=== PATIENT | female | born 1970 | race Caucasian/White ===

== ENCOUNTER 2024-04-26 08:09 | Day surgery (SDC) | payer OTHER, SELFPAY ==
--- NOTE | 2024-04-24 16:52 | PCM.HP.BLA ---
History and Physical Date of Admission: 04/26/24 HPI: The patient is a 53 year old female presenting for pre-operative visit. She is scheduled for Hysteroscopy D&C with possible polyp resection , for PMB on 04/26/24. Procedure discussed along with risks, benefits and complications. Other alternatives discussed for management. Consent form signed? Yes. PAST MEDICAL HISTORY PAST MEDICAL HISTORY Diagnosis Date ? Allergic rhinitis due to allergen ? Arthritis ? Cyst of ovary ? Dense breast ? Dizziness ? Gastroesophageal reflux disease without esophagitis ? History of kidney stones ? History of uterine leiomyoma ? IBS (irritable bowel syndrome) ? Microcalcification of breast ? Migraine PAST SURGICAL HISTORY PAST SURGICAL HISTORY Procedure Laterality Date ? ARTHRODESIS GREAT TOE INTERPHALANGEAL JOINT Right released tendon calf ? ARTHRODESIS GREAT TOE INTERPHALANGEAL JOINT Left ? COLONOSCOPY 07/23/2018 hyperplastic polyp, tubular adenoma ? COLONOSCOPY SCREENING 02/22/2023 Small Lipoma ? EGD 10/07/2020 ? ELBOW SURGERY HX ? LITHOTRIPSY / 1 SIDE 10/2016 ? PAST SURGICAL HISTORY OF skin biopsy 02/20/23 upper right lip and right calf ? SUPERFICIAL KERATECTOMY OD (RIGHT EYE) Right 10/15/2020 ? SUPERFICIAL KERATECTOMY OS (LEFT EYE) Left 11/04/2020 Dr. Paiz CURRENT MEDICATIONS Current Outpatient Medications Medication Sig Dispense Refill ? pantoprazole DR (PROTONIX) 20 mg tablet Take 1 tablet by mouth two times a day. On empty stomach at least 30 minutes before eating. 180 tablet 3 ? indomethacin (INDOCIN) 25 mg capsule Take 1 capsule by mouth three times a day with meals. 90 capsule 3 ? SUMAtriptan (IMITREX) 100 mg tablet Take 1 tablet (100 mg) by mouth as needed for migraine headache (see administration instructions). May repeat dose after 2 hours if needed. Maximum daily dose is 200 mg per day. 27 tablet 3 ? promethazine (PHENERGAN) 25 mg tablet Take 1 tablet by mouth every 6 hours as needed. 30 tablet 1 ? famotidine (PEPCID) 20 mg tablet Take 1 tablet by mouth at bedtime as needed (reflux/heartburn). 90 tablet 1 ? econazole nitrate (ECONAZOLE TOPICAL) Apply to affected area. ? meloxicam (MOBIC) 15 mg tablet Take 1 tablet by mouth once daily. 90 tablet 2 ? FIBER, PSYLLIUM HUSK, ORAL Take 1 capsule by mouth once daily. ? nystatin (MYCOSTATIN) powder Apply 1 application to affected area four times daily. Dispense 60 gram bottles. 60 g 4 ? cholecalciferol (VITAMIN D3) 1,000 unit tab tablet Take 2 tablets by mouth once daily. ? acyclovir (ZOVIRAX) 400 mg tablet Take 400 mg by mouth. ? betamethasone dipropionate (DIPROSONE) 0.05 % cream ? hypromellose (GENTEAL TEARS SEVERE GEL OPHTHALMIC) ? pimecrolimus (ELIDEL) 1 % cream ? PEG 400-propylene glycol (SYSTANE) 0.4-0.3 % ophthalmic solution ? sodium chloride (NITA 128) 5 % ophthalmic ointment Use 1 application in both eyes daily at bedtime. 3.5 g 1 ? Cyanocobalamin 1,000 mcg subl Dissolve under the tongue. ? multivitamins w-minerals/lut(CENTRUM SILVER TAB) Take one(1) tablet daily. 0 ? predniSONE (DELTASONE) 10 mg tablet 6 tabs po day 1, then 5 tabs day 2, 4 tabs day 3, 3 tabs day 4, 2 tabs day 5, 1 tab day 6. (Patient not taking: Reported on 04/24/2024) 21 tablet 0 No current facility-administered medications for this visit. ALLERGIES: Patient has no known allergies. PERSONAL HISTORY: SOCIAL HISTORY Social History Tobacco Use ? Smoking status: Never Passive exposure: Never ? Smokeless tobacco: Never Vaping Use ? Vaping status: Never Used Substance Use Topics ? Alcohol use: Not Currently ? Drug use: Never FAMILY HISTORY: FAMILY HISTORY FAMILY HISTORY Problem Relation Age of Onset ? Prostate Cancer Father ? Glaucoma Father ? Colon Polyps Father 85 did a resecton ? Colon Cancer Maternal Grandmother Age 83 ? Lymphoma Maternal Grandmother ? Macular Degen Maternal Grandfather ? Breast Cancer Maternal Aunt REVIEW OF SYMPTOMS: GENERAL: denies fevers or chills ENDOCRINOLOGY: has not been on steroids Cardiology : denies palpitations or chest pain Respiratory: denies SOB or cough Hematology: denies history of prolonged bleeding or easy bruising or VTE Allergy: Denies history of personal or family history of allergy to anesthesia PHYSICAL EXAMINATION: VITALS: Blood pressure 126/78, pulse 95, resp. rate 16, height 166.4 cm (5' 5.5), weight 95.3 kg (210 lb), last menstrual period 10/11/2021, SpO2 98%. GENERAL: The patient is well nourished, well hydrated in no acute distress. , The patient is oriented to time, place, and person. NECK: Supple. No lynphadenopathy, normal thyroid, no thyromegaly. LUNGS: Clear to auscultation bilaterally. no wheezes, rhonchi or rales HEART: Regular rate and rhythm, Normal heart sounds, and No murmurs or gallops IMPRESSION: PMB PLAN: The risks/benefits/alternatives and personal involved for the planned hysteroscopy D&C with possible polyp resection were reviewed with the patient. Her questions were answered to her satisfaction and she desires to proceed. Consent was signed. I reviewed with her postop instructions and expectations. I have reviewed and updated past medical and surgical history, medications and allergies Assessment & Plan Assessment/Plan (1) PMB (postmenopausal bleeding):
[2024-04-26] VITALS (8 sets, daily range): BP systolic 118–153; BP diastolic 66–90; PULSE 71–89; RESP 16; TEMP 36.3–36.6; O2SAT 100; BMI 34.7
[2024-04-26 09:05] LABS: Hematocrit 38.3 % (37-47); Hemoglobin 11.9 g/dL (12.0-15.0); Mean Corp Hgb Conc 31.1 g/dL (32-36); Mean Corpuscular Hgb 20.5 pg (27.0-32.0); Mean Corpuscular Volume 65.9 fL (81-99); Mean Platelet Vol. 10.2 fl (6.2-12.0); Platelet Count 255 K/mm3 (150-450); RBC Distribution Width CV 17.7 % (11.6-14.6); RBC Distribution Width SD 38.9 fl (35.1-43.9); Red Blood Count 5.81 M/mm3 (4.2-5.4); White Blood Count 3.9 K/mm3 (4.4-11.0)
[2024-04-26] MEDS: Ketorolac 30 MG/ML Syringe IV (09:05)
[2024-04-26] MEDS: 0.9% Normal Saline (1000mL) 1,000 ML 15 ML IV (09:05)
[2024-04-26] MEDS: Acetaminophen 500 MG Tablet 1000 MG PO (09:06)
[2024-04-26 09:25] LABS: Anion Gap 6 (5-15); BUN 20 mg/dL (7-18); BUN/Creat Ratio 25.6 RATIO (10-20); Calcium,Total 9.3 mg/dL (8.5-10.1); Chloride 109 mmol/L (98-107); Creatinine, Serum 0.78 mg/dL (0.55-1.02); EST Glomerular Filtration Rate 81 mL/min (>60); Est Glom Filt Rate - Afr Amer 98 mL/min (>60); Estimated Creatinine Clearance 93.55 ml/min; Glucose 98 mg/dL (74-106); Potassium 3.8 mmol/L (3.5-5.1); Sodium Level 141 mmol/L (136-145)
--- NOTE | 2024-04-26 09:33 | PRE.ANES_ITS ---
ASA Classification* ASA Classification ASA Classification: 2 Assessment & Plan Anesthesia* Anesthesia Assessment Anesthesia Assessment: Discussed sedation and/or anesthesia options, risks, benefits, and alternatives with patient/parents/legal guardian/POA. Questions invited. The patient/parents/legal guardian/POA seems to understand and agrees to proceed with anesthesia plan. Reviewed the physical assessment, medical history, allergy history and patient home medications list prior to surgery/procedure/anesthetic and documented any changes. Performed airway and anesthesia risk assessments. Anesthesia Type Anesthesia Type: MAC (LMA as backup) History Source History Obtained from:: Patient, Chart and - (sister inlaw) Anesthesia Focused Assessment* Temperature: 97.7 F Pulse Rate: 71 Blood Pressure: 153/90 Respiratory Rate: 16 Pulse Ox: 100 Oxygen Delivery Method: Room Air Airway Assessment Mouth opens: >3 cm Mallampati Score: II Teeth Condition: Intact and Caps/Crowns Neck Range of motion (ROM): Full ROM Focused Labs Anesthesia Preop lab: CBC WBC 3.9 K/mm3 (4.4-11.0) L 04/26/24 08:45 04/26/24 RBC 5.81 M/mm3 (4.2-5.4) H 04/26/24 08:45 04/26/24 Hgb 11.9 g/dL (12.0-15.0) L 04/26/24 08:45 5 Hct 38.3 % (37-47) 04/26/24 08:45 04/26/24 Plt Count 255 K/mm3 (150-450) 04/26/24 08:45 04/26/24 CHEMISTRY Potassium 3.8 mmol/L (3.5-5.1) 04/26/24 08:45 04/26/24 Sodium 141 mmol/L (136-145) 04/26/24 08:45 04/26/24 BUN 20 mg/dL (7-18) H 04/26/24 08:45 04/26/24 Creatinine 0.78 mg/dL (0.55-1.02) 04/26/24 08:45 04/26/24 Glucose 98 mg/dL (74-106) 04/26/24 08:45 04/26/24 COAG Pre-Assessment Diagnosis/Proposed Procedure Planned Operative Procedure(s): HYSTEROSCOPY, D&C,POLYP RESECTION, SYMPHION Anesthesia History 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 When Was Last Pacemaker Check QUESTION #4 FULL TEXT: You/Your Family Experience fever (hyperthermia) with Anesthesia Last Oral Intake Last Oral intake: Last Oral Intake NPO since 03:00 04/26/24 08:58 Meds taken in AM with sips of Yes 04/26/24 08:58 water? Meds patient instructed to take am of surgery PONV PONV - piercing machine operator: PONV - piercing machine operator Female Yes 04/12/24 14:47 HX of Motion Sickness No 04/12/24 14:47 HX of N/V After Surgery No 04/12/24 14:47 Non-Smoker Yes 04/12/24 14:47 Duration of Surgery greater No 04/12/24 14:47 than 60 minutes Number of Risk Factors 2 04/12/24 14:47 PONV Score Moderate Risk 04/12/24 14:47 Height & Weight Height & Weight: Anesthesia: Height & Weight Height 5 ft 5.5 in 04/26/24 08:58 Weight: 96.3 kg 04/26/24 08:58 Body Mass Index (BMI) 34.7 04/26/24 08:58 Respiratory Assessment Respiratory Assessment - piercing machine operator: Respiratory Tract Infection Hx - piercing machine operator Hx Respiratory Tract Infection No 04/12/24 14:47 STOP Sleep Apnea STOP Sleep Apnea - piercing machine operator: STOP Sleep Apnea - piercing machine operator Hx Hypertension No: BORDERLINE 04/12/24 14:47 Hx Sleep Apnea No 04/12/24 14:47 CPAP BIPAP Do you snore loudly (louder No 04/12/24 14:47 than talking or can be heard Do you often feel tired/ No 04/12/24 14:47 fatigued/ sleepy during daytime? Has anyone observed you stop No 04/12/24 14:47 breathing during sleep? STOP Results Negative 04/12/24 14:47 QUESTION #5 FULL TEXT : Do you snore loudly (louder than talking or can be heard through closed doors)? 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 Specify any problems Hx of Preganancy in last 3 No 04/12/24 14:47 Months Nurse Filling Out Transfusion [facility] 04/12/24 14:47 & Questions: Date: 04/12/24 04/12/24 14:47 Time: 14:56 04/12/24 14:47 Patient unable to answer at this time (ie. confused, unrespo /Reproduction History /Reproductive History - piercing machine operator: /Reproductive Hx- piercing machine operator Hx Now No 04/12/24 14:47 Gestational Age (in weeks): EDC: Hx Hx Para Hx Section SAB Active Medications Active Medications: Current Medications Generic Name Dose Route Start Last Admin Trade Name Freq PRN Reason Stop Dose Admin Sodium Chloride 1,000 mls @ 15 mls/hr 04/26/24 08:30 04/26/24 09:05 IV 05/01/24 21:49 15 mls/hr .Q48H CHITO Administration Protocol [facility] Medical History (Updated 04/24/24 @ 16:[address] Darlin Beckford MD) Wears glasses Post-menopausal Arthritis Easy bruising Migraine headache History of IBS Non-smoker Hypertension Home Medications ?Medication ?Instructions ?Recorded ?Last Taken ?Type carboxymethylcellulose 1 drp EACH EYE DAILY 5 04/25/24 History sod-hypromell 0.25 %-0.3 % eye liquid gel drops (Lubricant Gel) cholecalciferol (vitamin D3) 25 1,000 unit PO DAILY 04/25/24 History mcg (1,000 unit) tablet (Vitamin D3) econazole 1 % topical cream 1 applic topical DAILY 09/2704/26/24 History famotidine 20 mg tablet 20 mg PO QHS PRN 04/12/24 History fiber 1 cap PO DAILY 04/12/2404/07 History indomethacin 25 mg capsule 75 mg PO DAILY PRN MIGRANES 04/12/24 04/19/24 History meloxicam 15 mg tablet 15 mg PO DAILY 04/12/2403/08 History multivitamin (Daily Multi-Vitamin 1 tab PO DAILY 04/1204/25/24 History tablet) pantoprazole 20 mg tablet,delayed 20 mg PO DAILY 04/1204/26/24 History release peg 400-propylene glycol 0.4 %-0.3 1 drp EACH EYE DELIA Y PRN dry eye(s) 04/12/24 Unknown History % eye drops (Lubricant Eye (PG-PEG 400)) promethazine 25 mg tablet 25 mg PO PRN 04/12/24 History propylene glycol 0.6 % eye drops 1 drp EACH EYE DAILY PRN dry eye(s) 04/12/24 04/26/24 History (Lubricant Eye (propylene glycol)) sodium chloride 5 % eye drops 1 drp EACH EYE QHS 04/1204/23/24 History ([place]) sumatriptan succinate 100 mg tablet 100 mg PO PRN 09/2704/19/24 History valacyclovir 500 mg tablet 500 mg PO MOWEFR 04/12/24 0 04/24/24 History vitamin B12 1,000 mcg-folic acid 1 patricia sublingual EDLIA Y 04/12/24 04/25/24 History 400 mcg sublingual lozenge Allergy/AdvReac Type Severity Reaction Status Date / Time No Known Allergies Allergy Verified 04/26/24 08:37 Surgical History (Updated 04/12/24 @ 14:53 by Dariana Fang) History of eye surgery History of lithotripsy History of foot surgery History of elbow surgery Social History Smoking Status: Never smoker Review of Systems (Anesthesia) ROS Narrative System reviewed and no additional complaints, except as documented.
--- NOTE | 2024-04-26 09:45 | EMB_PTH ---
PATIENT: HEVER BALLESTEROS [place] [facility] [id number] AGE/SX: 53/F ROOM: RE04/26/[address]: Dr. Darlin Beckford MD : 1970 BED: DIS: 04/26/2024 SPEC #: [id number] RECD: 04/26/24 17:00 STATUS: JOSE ANGEL FRANCISCO #: [id number] TROY: 04/26/24 09:[address]: Darlin Beckford DEPT: SURGICAL PATHOLOGY RECD BY: Melissa Moran ENTERED: 04/29/24 07:48 SP TYPE: ENDOM BX/C KELSIE DR: JULIANNE MARK, MASK LAYOUT DESIGNER-C Tissues: Endometrium, NOS Procedures: Surgery Specimen Level IV HEADER OPERATION: Hysteroscopy, D&C PRE-OP DIAGNOSIS: Abnormal uterine bleeding TISSUE SUBMITTED: Endometrial curettings MICROSCOPIC DIAGNOSIS Endometrial curettings: Proliferative endometrium with cystic changes. Fragments of benign ectocervical epithelium and blood clots. See comment. 04/30/2024 COMMENT Clinical correlation and appropriate follow up are necessary. MICROSCOPIC DESCRIPTION Slides are reviewed. GROSS DESCRIPTION Received in fixative is one container labeled with the patient's name and designated Endometrial curettings. The specimen consists of a 5mm aggregate of harmon tissue and a 5mm aggregate of blood clot. Submitted entirely in one cassette. 04/29/2024 TC:5 CPT:86934
--- NOTE | 2024-04-26 15:13 | PCM.DC ---
Discharge Instructions Diet Discharge Diet: No restrictions DC O2, CPAP, BIPAP needs Home O2 Discharge instructions: No Dressing / Incision May resume sexual activity in: 1 week Lifting Restrictions: none Dressing / Incision Call your doctor if your incision/area has: Sudden Increased Bleeding and Foul Smelling Discharge Call your doctor if you observe: Fever of 101 or Higher and Using more than 1 pad per hour (for 2 hrs in a row) Follow Up Care Please Follow Up With: Darlin Beckford MD When: We will contact you with the pathology results. Call [phone] or send a [employer] message as needed for questions. You do not need a postop appointment for now. Test Results: Test results from this visit will be discussed in further detail at your follow-up appointment, if applicable. Discharge Plan Admission Attending Provider: Darlin Beckford Primary Care Provider: JULIANNE MARK Instructions Print Language: Thai Discharge Orders/Prescriptions Prescriptions: No Action valacyclovir 500 mg tablet 500 mg PO MOWEFR pantoprazole 20 mg tablet,delayed release (DR/EC) 20 mg PO DAILY famotidine 20 mg tablet 20 mg PO QHS PRN meloxicam 15 mg tablet 15 mg PO DAILY Patient Comments: TAKES ONE MONTH AND THEN SKIPS THE NEXT MONTH. NOT TAKING IN APRIL sumatriptan succinate 100 mg tablet 100 mg PO PRN promethazine 25 mg tablet 25 mg PO PRN indomethacin 25 mg capsule 75 mg PO DAILY PRN (Reason: MIGRANES) cholecalciferol (vitamin D3) [Vitamin D3] 25 mcg (1,000 unit) tablet 1,000 unit PO DAILY vitamin [id number] acid 1,000-400 mcg lozenge 1 patricia sublingual DAILY fiber Capsule 1 cap PO DAILY multivitamin [Daily Multi-Vitamin] Tablet 1 tab PO DAILY Lubricant Gel 0.25-0.3 % drops, liquid gel 1 drp EACH EYE DAILY sodium chloride [[place]] 5 % drops 1 drp EACH EYE QHS Lubricant Eye (PG-PEG 400) 0.4-0.3 % drops 1 drp EACH EYE DAILY PRN (Reason: dry eye(s)) Lubricant Eye (propyl glycol) 0.6 % drops 1 drp EACH EYE DAILY PRN (Reason: dry eye(s)) econazole 1 % cream 1 applic topical DAILY Referrals / Follow Up: Chasity Cheema MD [Med Staff - Car Painter] - Disposition Disposition (needs filled in before D/C Order can be placed): Home, Self Care
[2024-04-26] MEDS: Lidocaine 1% /Epi 1:100 (20ml) 20 ML Vial (15:25)
--- NOTE | 2024-04-26 15:34 | PCM.POST.ANE ---
Anesthesia: Postop Eval I Current Vital Signs Temperature: 97.4 F Pulse Rate: 89 Blood Pressure: 121/77 Respiratory Rate: 16 Pulse Ox: 100 Assessment Airway patent: Yes Spontaneous unlabored respirations: Yes nausea: No Vomiting: No Anesthesia Complication: No Fluid Hydration Crystalloid volume administer (ml): 0 Total IV fluid infused: 0 Progress Note Anesthesia document: Postop Eval 1 completed: Yes
--- NOTE | 2024-04-26 15:34 | PCM.OPRPT ---
Problems Associated Problem List Diagnoses (1) PMB (postmenopausal bleeding): Operative Report (Standard) Operative Information Date of Procedure: 04/26/24 Pre-Operative Diagnosis: PMB Post-Operative Diagnosis: same Surgery/Procedure Performed: Hysteroscopy D&C power reactor operator: No Type of Anesthesia: MAC/Supplemental/Local RN Documented Start/Stop Times: Operation Date: 04/26/24 09:45 Case Time Into Pre-Op 04/26/24 08:23 Out of Pre-Op 04/26/24 15:00 Procedure Start Time: 15:17 Procedure Stop Time: 15:31 Select all DRAINS/GRAFTS/IMPLANTS that apply: None Estimated Blood Loss: 10 Fluids Replaced: 700 Specimen collected: Yes Description of specimen(s) removed: endometrial curettings Description of surgery: The patient was taken to the OR where she was prepped and draped in dorsal lithotomy position. The weighted speculum was placed in the vagina and the anterior lip of the cervix was grasped with a single-tooth tenaculum. A paracervical block was administered with 1% lidocaine with 1-100,000 epinephrine solution. The cervix was dilated serially with Hegar dilators. The Symphion hysteroscope was placed into the uterine cavity and the above findings were noted. Bilateral tubal ostia were identified. The hysteroscope was removed. A gentle sharp curettage was done of the endometrium. The instruments were removed from the vagina. The specimen was handed off and sent to pathology. All sponge and needle counts were correct. Vaginal sweep was performed by me. The patient was awakened and taken to the recovery room in stable condition. Calculated hysteroscopic fluid deficit is 0 cc of normal saline Surgical Findings: atrophic thin endometrium, normal cervix and vagina Complications Complications: No Admit VTE Documentation VTE Present on Admission: No VTE Mechan Device [place] [facility] [place] Prophylaxis ordered?: No
--- NOTE | 2024-04-26 16:07 | POSTOPAN2_ITS ---
Anesthesia Postop Eval I Sum Postop Eval Completion status Anesthesia document: Postop Eval 1 completed: Yes Anesthesia Postop Eval I Summary Anesthesia Postop Eval I Summary: Anesthesia Postop Eval I: Assessment Summary Airway patent Yes 04/26/24 16:06 SLIVER [email or web address] Spontaneous unlabored Yes 04/26/24 16:06 SLIVER CUTTER.CSIR respirations Mental status nausea No 04/26/24 16:06 SLIVER CUTTER.CSIR Vomiting No 04/26/24 16:06 SLIVER CUTTER.CSIR Anesthesia Postop Eval I: Fluid Summary Crystalloid volume administer 0 04/26/24 16:06 SLIVER CUTTER.CSIR (ml) Colloids volume administered ( ml) Blood Product volume administered (ml) Total IV fluid infused 0 04/26/24 16:06 SLIVER CUTTER.CSIR Anesthesia Postop Eval I: Summary Notes Anesthesia Complication No 04/26/24 16:06 SLIVER CUTTER.CSIR Anesthesia Complication Comment: Post-operative progress note Anesthesia: Postop Eval II Evaluation Mental status: Awake Pain Level: 1 nausea: No Vomiting: No
--- NOTE | 2024-04-26 16:07 | PCM.POSTANE2 ---
Anesthesia Postop Eval I Sum Postop Eval Completion status Anesthesia document: Postop Eval 1 completed: Yes Anesthesia Postop Eval I Summary Anesthesia Postop Eval I Summary: Anesthesia Postop Eval I: Assessment Summary Airway patent Yes 04/26/24 16:06 GREASE REFINER OPERATOR.CSIR Spontaneous unlabored Yes 04/26/24 16:06 GREASE REFINER OPERATOR.CSIR respirations Mental status nausea No 04/26/24 16:06 GREASE REFINER OPERATOR.CSIR Vomiting No 04/26/24 16:06 GREASE REFINER OPERATOR.CSIR Anesthesia Postop Eval I: Fluid Summary Crystalloid volume administer 0 04/26/24 16:06 GREASE REFINER OPERATOR.CSIR (ml) Colloids volume administered ( ml) Blood Product volume administered (ml) Total IV fluid infused 0 04/26/24 16:06 GREASE REFINER OPERATOR.CSIR Anesthesia Postop Eval I: Summary Notes Anesthesia Complication No 04/26/24 16:06 GREASE REFINER OPERATOR.CSIR Anesthesia Complication Comment: Post-operative progress note Anesthesia: Postop Eval II Evaluation Mental status: Awake Pain Level: 1 nausea: No Vomiting: No
[2024-04-26] MEDS: oxyCODONE 5 MG Tablet PO (16:09)
== END 2024-04-26 16:40 | disposition home or self-care (01) ==
LOC: SDC 08:11 → AC 08:15
PROVIDERS: PCP Nurse Practitioner; Referring Provider Obstetrics & Gynecology; Visit Provider Obstetrics & Gynecology
PROC: 0UB98ZZ Excision of Uterus, Via Natural or Artificial Opening Endoscopic (ICD-10-PCS; CPT 58558; principal; 2024-04-26 09:30)
DX: N95.0 Postmenopausal bleeding (principal)
CPT/HCPCS: 58558; 00952; 80048; 85027; 88305